=== PATIENT | female | born 1965 | race Caucasian/White ===

== ENCOUNTER 2024-05-31 01:47 | Inpatient (IN) | payer OTHER, SELFPAY ==
[2024-05-30 21:31] VITALS: BP 132/72
[2024-05-30 21:44] VITALS: BP 108/53; BMI 27.0
[2024-05-30 22:00] VITALS: BP 96/54
[2024-05-30 22:01] LABS: % Basophils 0.5 % (0-2); % Eosinophils 5.8 % (0-6); % Immature Granulocytes 0.3 % (0-0.5); % Lymphocytes 43.9 % (20.5-51.1); % Monocytes 7.5 % (1.7-9.3); Absolute Eosinophils 0.4 10^3/uL (0-0.7); Absolute Lymphocytes 2.6 10^3/uL (1.2-3.4); Absolute Monocytes 0.5 10^3/uL (0.1-0.6); Absolute Neutrophils 2.5 10^3/uL (1.4-6.5); Hematocrit 36.7 % (37.0-47.0); Hemoglobin 12.3 g/dL (12.0-16.0); Mean Corp Hgb Conc. 33.5 g/dL (33.0-37.0); Mean Corpuscular Hgb 32.2 pg (27.0-31.0); Mean Corpuscular Volume 96.1 fL (81.0-99.0); Mean Platelet Volume 9.3 fL (7.4-10.4); Nucleated Red Blood Cells % 0 %; Platelet Count 231 10^3/uL (130-400); Red Blood Cell Count 3.82 10^6/uL (4.20-5.40); Red Cell Dist. Width 13.8 % (11.5-14.5)
[2024-05-30 22:20] LABS: ALT (SGPT) 22 U/L (0-35); AST (SGOT) 29 U/L (14-36); Albumin 4.8 g/dl (3.5-5.0); Alkaline Phosphatase 48 U/L (38-126); Blood Urea Nitrogen 21 mg/dl (7-17); Calcium 9.6 mg/dl (8.4-10.2); Carbon Dioxide 27 mmol/L (22-30); Chloride 102 mmol/L (98-107); Estimated Creatinine Clearance 60 ml/min; Glucose 84 mg/dl (70-99); Potassium 3.9 mmol/L (3.5-5.1); Sodium 138 mmol/L (135-145); Total Bilirubin 0.5 mg/dl (0.2-1.3); eGFR > 60.00
[2024-05-30 22:24] LABS: NT-proBNP 24.3 pg/ml; Troponin I < 0.012 ng/ml
--- NOTE | 2024-05-30 22:31 | EDRN ---
Updated the patient on blood work
[2024-05-30 23:00] VITALS: BP 94/58
--- NOTE | 2024-05-30 23:14 | ED.GENMED ---
History of Present Illness
<Elisabeth Smith NP - Last Filed: 06/02/24 02:33>
General
Chief Complaint: Chest Pain
Source: patient
Exam Limitations: none
Time Seen by Provider: 05/30/24 21:50
Nursing documentation reviewed up to this point in time: agreed with
History of Present Illness
History of Present Illness:
Patient to ED with complaint of chest pain and tightness. Symptoms started just [employer]. Reports pain into back at time. Pain and tightness came in waves. No aggravating or alleviating factors. Pain and tightness resolved prior to evaluation. No
prior history of same. No associated n/v/diaphoresis. No SOB.
Past History
<Elisabeth Smith FORENSIC NURSE - Last Filed: 06/02/24 02:33>
Past History
ED Past Medical History: Other (Chronic back pain)
ED Past Surgical History: Other (Breast reduction surgery)
Social History
Tobacco: Non-smoker
Alcohol: None
Drug: None
Personal:
Living: with family
Review of Systems
<Elisabeth Smith NP - Last Filed: 06/02/24 02:33>
Review of Systems
Allergies reviewed?: Yes
All Other Systems: ROS reviewed and negative except as documented in HPI and ROS
Constitutional: Reports no symptoms
EENT: Reports no symptoms
Respiratory: Reports no symptoms
Cardiac: Reports chest pain
ABD/GI: Reports no symptoms
: Reports no symptoms
Musculoskeletal: Reports no symptoms
Skin: Reports no symptoms
Neurological: Reports no symptoms
Psychiatric: Reports no symptoms
Phy Exam
<Elisabeth Smith FORENSIC NURSE - Last Filed: 06/02/24 02:33>
General Physical Exam
General Presentation: well appearing and no apparent distress
General age: appears stated age
General Skin: warm and dry
General Habitus: normal
General Mental: alert
Cardiovascular Exam
Cardiovascular Exam: regular rate/rhythm and no edema
Pulmonary Exam
Pulmonary Exam: lungs clear and no respiratory distress
Gastrointestinal Exam
Gastrointestinal Exam: non tender and soft
Musculoskeletal Exam
Musculoskeletal Exam: full ROM and neuro vasc intact
Skin Exam
Skin Exam: normal color, warm/dry and no rash
Psychiatric Exam
Psychiatric Exam: normal mood/affect
Scores
<Elisabeth Smith NP - Last Filed: 06/02/24 02:33>
Heart Score for Chest Pain Patients
STEMI patient?: No
History: Moderately Suspicious
ECG: Normal
Age: >45 - <65 years
Risk Factors: 1 or 2 Risk Factors
Troponin: >1 - <3 x Normal Limit
Heart Score for Chest Pain Patients: 4
Heart Score Risk: 20.3% MACE over next 6 weeks
Course
<Elisabeth Smith NP - Last Filed: 06/02/24 02:33>
Orders/Labs/Results
Orders:
Orders
05/30/24 21:22
Electrocardiogram (*1) Urgent
Reason for Study: Other
Other Reason for Exam: Respiratory Distress
Cardiac Monitoring- Treatment ONCE
EKG- Treatment ONCE
IV Insert/Care/Rem.- Treatment PRN
CR Chest - 2 Views Urgent
Comment:
Reason For Exam: respiratory distress
O2 Therapy [RESP] Urgent
Titrate/Wean O2 to maintain O2 sat greater than (%): 93
Special Instructions: TO MAINTAIN CONTINUOUS O2 SATS >/= 93%
Pulse Ox/cont/shift [RESP] Urgent
Quantity: 1
Special Instructions: continuous pulse ox
05/30/24 21:39
Complete Blood Count/With Diff Urgent
Comprehensive Metabolic Panel Urgent
NT-proBNP Urgent
Troponin I Urgent
05/31/24 00:16
Troponin I Urgent
05/31/24 01:06
Heparin 4,700 units IV NOW STA
Nursing to Place Non Medication Order As Directed
Physician Order: PTT 6 hours after initial start of Heparin infusion
Above order entered?: Yes
05/31/24 01:07
Electrocardiogram (*1) Urgent
Reason for Study: Chest Pain
EKG- Treatment ONCE
05/31/24 01:08
PTT Urgent
Comment: Obtain baseline before beginning heparin infusion if not already collected
05/31/24 01:30
Heparin 50888 Units/250 ml 25,000 units in 250 ml .ROUTE .STK-MED
05/31/24 01:33
Aspirin Chewable [Low Strength Aspirin] 324 mg PO NOW STA
Nitroglycerin Sublingual [Nitrostat (Sublingual)] 0.4 mg SL NOW STA
05/31/24 01:36
Admit/Transfer Patient As Directed
Co-Sign Provider:
Level of Care: Inpatient admission
Assign to:: IVU
Physician / Group: Yasmany
Diagnosis: ACS
Reason for Hospitalization: ACS
Expected length of stay greater than two midnights?: Yes
ELOS- Estimated Length of Stay in days: 3
I certify the patient meets the requirements for IP care: Yes
PRN Pain Medication Management As Directed
May give lesser potent ordered pain med per pt: Yes
preference::
Protocol:: Medication orders for pain may be administered in a
manner that supports deferring to patient preference
when the pt is:
- Requesting an ordered lesser potent pain medication.
Least to most potent pain medications are defined
as: acetaminophen < NSAID < tramadol < opioids
(morphine, oxycodone, hydromorphone).
- Requesting a lesser dose of the same medication IF
ORDERED.
- Requesting a less intrusive route of administration
if both routes are prescribed by the provider (PO <
IV).
05/31/24 01:38
Code Status As Directed
Resuscitation Status: Full Code
Aspirin Chewable [Low Strength Aspirin] 324 mg .ROUTE .STK-MED ONE
Nitroglycerin Sublingual [Nitrostat (Sublingual)] 0.4 mg .ROUTE .STK-MED ONE
05/31/24 01:[address] [CT Chest PE Study] Urgent
Comment:
Reason For Exam: Chest pain / back pain
05/31/24 01:45
Heparin 51058 Units/250 ml 25,000 units in 250 ml IV PER PROTOCOL
Weight to be used for heparin protocol in kilograms (kg):: 67
Protocol:: Cardiac Tx/Acute Coronary
PTT Goal Range to be used:: PTT 73 to 111 seconds
Order type:: Initial
INITIAL Infusion Dose (UNITS/KG/hr) & then follow protocol:: 15 units/kg/hr
Infusion Dose in UNITS/hr & then follow protocol (UNITS/hr):: 1,000
INFUSION RATE in mL/hr & then follow protocol (mL/hr):: 10
PTT less than or equal to 64 seconds:: Increase rate by 200 units/hr (+ 2 mL/hr)
PTT 64.1 to 72.9 seconds:: Increase rate by 100 units/hr (+ 1 mL/hr)
PTT 73 to 111 seconds:: Target Range. No change in rate.
PTT 111.1 to 130.9 seconds:: Decrease rate by 100 units/hr (- 1 mL/hr)
PTT 131 to 199.9 seconds:: HOLD for 1 hr. Then decrease rate by 200 units/hr (- 2 mL/hr)
PTT greater than or equal to 200 seconds:: HOLD for 2 hrs & Notify Provider. Then decrease by 200 units/hr (-
2 mL/hr)
Lab follow-up:: Each change, PTT q6h until 2 consecutive are therapeutic. Then PTT
daily.
05/31/24 02:52
Acetaminophen [Tylenol] 650 mg PO Q4HPRN PRN
Lactated Ringers [Lr] 1,000 ml IV 100 mls/hr
Morphine Sulfate 2 mg IV Q4HPRN PRN
Nitroglycerin Sublingual [Nitrostat (Sublingual)] 0.4 mg SL [id number] PRN
05/31/24 02:52
CARDIOLOGY CONSULT Routine
Consulting Provider: Ramon Daniel
Was physician already notified: No
Reason for consult: ACS
Consult Notification Routine
Specialty to Notify: Cardiology
Date consulting provider notified: 05/31/24
Time consulting provider notified: 07:15
Notified:: Provider
Comment: [place] text read
Heparin Protocol- PTT Orders As Directed
PTT per Heparin protocol: -Obtain CBC and baseline PTT - if not already collected.
-Obtain PTT 6 hours from start of infusion. Then, every 6 hours until 2 consecutive
PTT's are therapeutic. Then, PTT Daily.
-With each rate change, obtain PTT every 6 hours until 2 consecutive PTT's are
therapeutic. Then, PTT Daily.
Activity As Directed
Activity Level: Bedrest
EKG with chest pain [ECG as needed] As Directed
ECG as needed for:: Chest Pain
I/O [Intake/ Output] As Directed
Frequency: Per unit guidelines
Notify MD As Directed
Notify physician if: PTT is greater than or equal to 200.
Vital Signs As Directed
Frequency: Per unit guidelines
Oxygen Therapy [O2 Therapy] [RESP] Routine
Titrate/Wean O2 to maintain O2 sat greater than (%): 94
05/31/24 Breakfast
NPO
Allow oral meds: Yes
Allow clear liquids: Sips of Clears
05/31/24 06:21
Glycohemoglobin (HgbA1c) Routine
05/31/24 08:00
Aspirin Chewable [Low Strength Aspirin] 81 mg PO DAILY
05/31/24 18:00
Atorvastatin [Lipitor] 40 mg PO QPM
Abnormal Lab Results
05/30/24 05/31/24
21:39 00:16
RBC 3.82 L 10^6/uL
(4.20-5.40)
Hct 36.7 L %
(37.0-47.0)
MCH 32.2 H pg
(27.0-31.0)
Neutrophils % 42.0 L %
(42.2-75.2)
BUN 21 H mg/dl
(7-17)
Troponin I 0.172 H* D ng/ml
05/30/24 21:39
05/30/24 21:39
Vital Signs
Initial and Last Documented VS:
Initial Vital Signs
Temp Pulse Resp BP
98.3 F 78 18 132/72
05/30/24 21:31 05/30/24 21:31 05/30/24 21:31 05/30/24 21:31
Last Documented Vital Signs
Temp Pulse Resp BP Pulse Ox
99 F 54 16 115/68 98
06/01/24 20:06 06/01/24 20:06 06/01/24 20:06 06/01/24 20:06 06/01/24 20:06
<Mark Lugo, DO - Last Filed: 05/31/24 01:19>
Orders/Labs/Results
Orders:
Orders
05/30/24 21:22
Electrocardiogram (*1) Urgent
Reason for Study: Other
Other Reason for Exam: Respiratory Distress
Cardiac Monitoring- Treatment ONCE
EKG- Treatment ONCE
IV Insert/Care/Rem.- Treatment PRN
CR Chest - 2 Views Urgent
Comment:
Reason For Exam: respiratory distress
O2 Therapy [RESP] Urgent
Titrate/Wean O2 to maintain O2 sat greater than (%): 93
Special Instructions: TO MAINTAIN CONTINUOUS O2 SATS >/= 93%
Pulse Ox/cont/shift [RESP] Urgent
Quantity: 1
Special Instructions: continuous pulse ox
05/30/24 21:39
Complete Blood Count/With Diff Urgent
Comprehensive Metabolic Panel Urgent
NT-proBNP Urgent
Troponin I Urgent
05/31/24 00:16
Troponin I Urgent
05/31/24 01:06
Heparin 4,700 units IV NOW STA
Nursing to Place Non Medication Order As Directed
Physician Order: PTT 6 hours after initial start of Heparin infusion
Above order entered?: Yes
05/31/24 01:07
Electrocardiogram (*1) Urgent
Reason for Study: Chest Pain
EKG- Treatment ONCE
05/31/24 01:08
PTT Urgent
Comment: Obtain baseline before beginning heparin infusion if not already collected
05/31/24 01:30
Heparin 06985 Units/250 ml 25,000 units in 250 ml .ROUTE .STK-MED
05/31/24 01:33
Aspirin Chewable [Low Strength Aspirin] 324 mg PO NOW STA
Nitroglycerin Sublingual [Nitrostat (Sublingual)] 0.4 mg SL NOW STA
05/31/24 01:36
Admit/Transfer Patient As Directed
Co-Sign Provider:
Level of Care: Inpatient admission
Assign to:: IVU
Physician / Group: Yasmany
Diagnosis: ACS
Reason for Hospitalization: ACS
Expected length of stay greater than two midnights?: Yes
ELOS- Estimated Length of Stay in days: 3
I certify the patient meets the requirements for IP care: Yes
PRN Pain Medication Management As Directed
May give lesser potent ordered pain med per pt: Yes
preference::
Protocol:: Medication orders for pain may be administered in a
manner that supports deferring to patient preference
when the pt is:
- Requesting an ordered lesser potent pain medication.
Least to most potent pain medications are defined
as: acetaminophen < NSAID < tramadol < opioids
(morphine, oxycodone, hydromorphone).
- Requesting a lesser dose of the same medication IF
ORDERED.
- Requesting a less intrusive route of administration
if both routes are prescribed by the provider (PO <
IV).
05/31/24 01:38
Code Status As Directed
Resuscitation Status: Full Code
Aspirin Chewable [Low Strength Aspirin] 324 mg .ROUTE .STK-MED ONE
Nitroglycerin Sublingual [Nitrostat (Sublingual)] 0.4 mg .ROUTE .STK-MED ONE
05/31/24 01:[address] [CT Chest PE Study] Urgent
Comment:
Reason For Exam: Chest pain / back pain
05/31/24 01:45
Heparin 10809 Units/250 ml 25,000 units in 250 ml IV PER PROTOCOL
Weight to be used for heparin protocol in kilograms (kg):: 67
Protocol:: Cardiac Tx/Acute Coronary
PTT Goal Range to be used:: PTT 73 to 111 seconds
Order type:: Initial
INITIAL Infusion Dose (UNITS/KG/hr) & then follow protocol:: 15 units/kg/hr
Infusion Dose in UNITS/hr & then follow protocol (UNITS/hr):: 1,000
INFUSION RATE in mL/hr & then follow protocol (mL/hr):: 10
PTT less than or equal to 64 seconds:: Increase rate by 200 units/hr (+ 2 mL/hr)
PTT 64.1 to 72.9 seconds:: Increase rate by 100 units/hr (+ 1 mL/hr)
PTT 73 to 111 seconds:: Target Range. No change in rate.
PTT 111.1 to 130.9 seconds:: Decrease rate by 100 units/hr (- 1 mL/hr)
PTT 131 to 199.9 seconds:: HOLD for 1 hr. Then decrease rate by 200 units/hr (- 2 mL/hr)
PTT greater than or equal to 200 seconds:: HOLD for 2 hrs & Notify Provider. Then decrease by 200 units/hr (-
2 mL/hr)
Lab follow-up:: Each change, PTT q6h until 2 consecutive are therapeutic. Then PTT
daily.
05/31/24 02:52
Acetaminophen [Tylenol] 650 mg PO Q4HPRN PRN
Lactated Ringers [Lr] 1,000 ml IV 100 mls/hr
Morphine Sulfate 2 mg IV Q4HPRN PRN
Nitroglycerin Sublingual [Nitrostat (Sublingual)] 0.4 mg SL [id number] PRN
05/31/24 02:52
CARDIOLOGY CONSULT Routine
Consulting Provider: Ramon Daniel
Was physician already notified: No
Reason for consult: ACS
Consult Notification Routine
Specialty to Notify: Cardiology
Date consulting provider notified: 05/31/24
Time consulting provider notified: 07:15
Notified:: Provider
Comment: [place] text read
Heparin Protocol- PTT Orders As Directed
PTT per Heparin protocol: -Obtain CBC and baseline PTT - if not already collected.
-Obtain PTT 6 hours from start of infusion. Then, every 6 hours until 2 consecutive
PTT's are therapeutic. Then, PTT Daily.
-With each rate change, obtain PTT every 6 hours until 2 consecutive PTT's are
therapeutic. Then, PTT Daily.
Activity As Directed
Activity Level: Bedrest
EKG with chest pain [ECG as needed] As Directed
ECG as needed for:: Chest Pain
I/O [Intake/ Output] As Directed
Frequency: Per unit guidelines
Notify MD As Directed
Notify physician if: PTT is greater than or equal to 200.
Vital Signs As Directed
Frequency: Per unit guidelines
Oxygen Therapy [O2 Therapy] [RESP] Routine
Titrate/Wean O2 to maintain O2 sat greater than (%): 94
05/31/24 Breakfast
NPO
Allow oral meds: Yes
Allow clear liquids: Sips of Clears
05/31/24 06:21
Glycohemoglobin (HgbA1c) Routine
05/31/24 08:00
Aspirin Chewable [Low Strength Aspirin] 81 mg PO DAILY
05/31/24 18:00
Atorvastatin [Lipitor] 40 mg PO QPM
Abnormal Lab Results
05/30/24 05/31/24
21:39 00:16
RBC 3.82 L 10^6/uL
(4.20-5.40)
Hct 36.7 L %
(37.0-47.0)
MCH 32.2 H pg
(27.0-31.0)
Neutrophils % 42.0 L %
(42.2-75.2)
BUN 21 H mg/dl
(7-17)
Troponin I 0.172 H* D ng/ml
05/30/24 21:39
05/30/24 21:39
Vital Signs
Initial and Last Documented VS:
Initial Vital Signs
Temp Pulse Resp BP
98.3 F 78 18 132/72
05/30/24 21:31 05/30/24 21:31 05/30/24 21:31 05/30/24 21:31
Last Documented Vital Signs
Temp Pulse Resp BP Pulse Ox
99 F 54 16 115/68 98
06/01/24 20:06 06/01/24 20:06 06/01/24 20:06 06/01/24 20:06 06/01/24 20:06
<Elisabeth Smith NP - Last Filed: 06/02/24 02:33>
*Critical Care Note
Total Time (30-74mins, 75-104mins- exclusive of procedures): Not Applicable
<Elisabeth Smith NP - Last Filed: 06/02/24 02:33>
Update Note
Update Note:
Patient remains asymptomatic. VSS. Labs, CXR reviewed with her. No concerning findings. EKG NSR, troponin neg. WIll repeat troponin at 3hrs.
<Mark Lugo, DO - Last Filed: 05/31/24 01:19>
Update Note
Update Note:
Patient remains asymptomatic. VSS. Labs, CXR reviewed with her. No concerning findings. EKG NSR, troponin neg. WIll repeat troponin at 3hrs.
Repeat troponin is markedly elevated. Patient is still asymptomatic. Repeat EKG is largely unchanged. Heparin started patient to be admitted for continued observation and cardiology intervention if needed.
ED Attending Note
<Elisabeth Smith NP - Last Filed: 06/02/24 02:33>
-
Portions of this chart may have been created with voice recognition software.� Occasional wrong word or��sound alike� substitutions may have occurred due to the inherent limitations of voice recognition software.
Discharge Plan
Departure
Patient Disposition: Admit
Date of Disposition: 05/31/24
Time of Disposition: 01:18
Admit to: IMU
Presentation/result/management discussed w/ accepting MD/DO: Hospitalist
Patient with high blood pressure during this ER visit?: No
Condition: Good
Covid-19: Not Applicable
Discharge Problem:
Chest pain
Interventions
Interventions:
*Risk Screen - Suicide Last Done: 05/30/24 21:31
*General Assessment Last Done: 05/30/24 21:31
*Neglect/Abuse Screening Last Done: 05/30/24 21:31
ED- Fall Risk Assessment Last Done: 05/30/24 21:44
*ED COVID-19 Vaccine History Last Done: 05/31/24 03:10
*Nursing Disposition Last Done: 05/31/24 03:14
ED- Cardiac Assessment Last Done: 05/30/24 21:44
Discharge Date and Time
Discharge Date/Time: 05/31/24 03:15
[2024-05-31] VITALS (14 sets, daily range): BP systolic 66–125; BP diastolic 41–72; BMI 26.6
[2024-05-31 00:54] LABS: Troponin I 0.172 ng/ml
--- NOTE | 2024-05-31 01:19 | EDRN ---
Patient updated on recent labs, Dr. Lugo in to speak with patient about plan and Dr. Jade in to admit patient, patient complained to me about legs feeling tingly, took blood pressure in both arms, right arm was 125/61, left arm was 109/71,
Parish aware.
[2024-05-31 01:28] LABS: APTT 28.2 Sec (23.4-35.0)
[2024-05-31] MEDS: LOW STRENGTH ASPIRIN 324 MG PO (01:41)
--- NOTE | 2024-05-31 01:41 | HPS.HSE ---
Family Physician
-
Family Physician: NOT KNOW UNKNOWN - PT DOES
Chief Complaint
-
Chest Pain
History of Present Illness
Patient is a 59y F with PMH significant for dyslipidemia who presents to ED complaining of chest pain. Patient states that she first noted some cramping in the R calf area. This was followed by substernal chest heaviness or pressure. Patient
states that the discomfort was quite severe and radiated straight through to the back. She had associated headache. She denies any SOB, diaphoresis or nausea. She then developed pins and needles sensation in both lower legs. Patient states that
these symptoms waxed and waned throughout the evening. She ultimately decided to present to the ED for further evaluation. En route to the hospital, her chest discomfort became most severe. By the time she arrived here, the symptoms were again
improving.
At the time of my examination, patient complains of a mild discomfort in the chest. She has had no more severe episodes since arrival.
Patient denies any prior history of similar symptoms. No personal history of KS, stroke, etc.
Patient has been seen by Cardiology at [facility]. She states that she had a calcium score done which was 101.
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
Patient initially developed symptoms of dysuria / suspected UTI. This was about 3 weeks ago. She was started on Bactrim.
1-2 days later she developed fever and shaking chills.
She then developed petechial rash of both lower legs.
She was treated with a prednisone taper and her symptoms fully resolved.
Medical History
Past Medical History
Past Medical History: Reports Other
Additional Past Medical History:
Dyslipidemia
Melanoma
Past Surgical History: Reports Other
Additional Past Surgical History:
Melanoma Excision
Bilateral Breast Reduction
Blepharoplasty
Social History
Tobacco: Non-smoker
Alcohol: Daily (1-2 / day)
Drug: None
Personal:
Living: With Family
Family History
Family History: Hypertension and Other (Multiple female family members with CVA )
Allergies / Home Medications
Allergies reflects when Allergies were last updated in [facility].
Home Medications with original date entered in [facility]
Allergy/Medication List:
Allergies
Allergy/AdvReac Type Severity Reaction Status Date / Time
amoxicillin Allergy Rash Verified 03/22/18 09:31
Penicillins Allergy Rash Verified 03/22/18 09:31
sulfamethoxazole Allergy Rash Verified 05/31/24 01:50
[From Bactrim]
trimethoprim [From Bactrim] Allergy Rash Verified 05/31/24 01:50
Home Medications
ezetimibe 10 mg tablet 10 mg PO DAILY 05/31/24
pravastatin 20 mg tablet 20 mg PO DAILY 05/31/24
Review of Systems
-
History Source: Patient
A 12 point ROS was completed and negative except as noted: Yes
Constitutional: Denies Fever, Fatigue or Chills
EENT: Denies Sore Throat
Respiratory: Denies Cough or Trouble Breathing
Cardiac: Reports Chest Pain; Denies Diaphoresis, Palpitations or Syncope
Abdomen/GI: Denies Abdominal Pain, Nausea, Vomiting or Diarrhea
: Denies Dysuria or Frequency
Musculoskeletal: Denies Joint Pain or Edema
Neurological: Reports Headache and Numbness; Denies Dizzy
Psych: Denies Depression or Anxiety
Physical Exam
Vital Signs
Vital Signs
Temp Pulse Resp BP Pulse Ox
98.3 F 69 17 109/71 98
05/30/24 21:31 05/31/24 01:15 05/31/24 01:15 05/31/24 01:15 05/31/24 01:15
Physical Exam
General: Other (Pale-appearing 59y F in no acute distress.)
HEENT: Moist mucous membranes and PERRLA
Respiratory: Clear; No Wheezes, Rales or Rhonchi
Cardiac: S1/S2 and Regular Rhythm; No Murmur
GI: Soft, Non Tender, Non Distended and Normal Bowel Sounds
Musculoskeletal: No Clubbing, No Cyanosis and No Edema
Neuro: AO x 3
Laboratory Results
-
05/30/24 21:39
05/30/24 21:39
Laboratory Results
APTT 28.2 Sec (23.4-35.0) 05/31/24 01:08
Total Bilirubin 0.5 mg/dl (0.2-1.3) 05/30/24 21:39
AST 29 U/L (14-36) 05/30/24 21:39
ALT 22 U/L (0-35) 05/30/24 21:39
Alkaline Phosphatase 48 U/L (38-126) 05/30/24 21:39
Troponin I 0.172 ng/ml H* D 05/31/24 00:16
Impression/Plan
-
A/P: Patient is a 59y F with PMH significant for dyslipidemia who presents to ED complaining of chest pain.
Chest Pain / ACS
- Admit to IVU for further evaluation and treatment.
- EKG without evidence of acute ischemia.
- Initial troponin was undetectable but second set was elevated at 0.172.
- ASA now. IV heparin. NTG SL PRN chest discomfort (has some mild residual discomfort now).
- Follow for changes in symptoms.
- Trend troponin to peak.
- Cardiology evaluation in the AM for additional recommendations.
- Given radiation of pain to the back, preceding symptoms of R calf cramping and recent episode of vasculitis - would check CTA of the chest to rule out other potential / contributing causes.
Dyslipidemia
- Change pravastatin to atorvastatin.
DVT Prophylaxis: On IV Heparin
Code Status: Full
[2024-05-31] MEDS: NITROSTAT (SUBLINGUAL) 0.4 MG SL (01:43)
[2024-05-31] MEDS: HEPARIN 4700 UNITS IV (01:43)
[2024-05-31] MEDS: HEPARIN 25000 UNITS/250 ML IV (01:45)
--- NOTE | 2024-05-31 01:50 | EDRN ---
Patient's blood pressure dropped after receiving the nitro and became nauseated, placed patient in Trendelenburg position and informed Dr. Jade, fluids ordered and hung. Patients nausea subsides and blood pressure coming up.
[2024-05-31] MEDS: NSS 1000 IV (02:00)
[2024-05-31] MEDS: LR 1000 IV ×3 (03:34→22:55)
--- NOTE | 2024-05-31 05:41 | PTCARENOTE ---
Rec'd pt. into room 2244 AAOx3, VSS, pt. able to ambulate with steady gait, no dizziness. NSR on the monitor . Pt. denied any acute chest pain, states she just has the 'sense that something happened earlier in my chest' which she could not call
pain and was unable to rate in intensity. Heparin gtt infusing at 1000 units/hr, LR started at 100 ml/he (of note, pt.'s BP 112/69 following hypotensive episode in ED). Pt. NPO pending cards eval today; plan of care discussed with patient,
understanding verbalized. Pt. currently sleeping.
[2024-05-31 07:16] LABS: APTT > 200 Sec (23.4-35.0)
[2024-05-31 08:25] LABS: Hematocrit 31.8 % (37.0-47.0); Hemoglobin 10.9 g/dL (12.0-16.0); Mean Corp Hgb Conc. 34.3 g/dL (33.0-37.0); Mean Corpuscular Hgb 32.4 pg (27.0-31.0); Mean Corpuscular Volume 94.6 fL (81.0-99.0); Mean Platelet Volume 9.4 fL (7.4-10.4); Platelet Count 209 10^3/uL (130-400); Red Blood Cell Count 3.36 10^6/uL (4.20-5.40); Red Cell Dist. Width 13.8 % (11.5-14.5); White Blood Cell Count 4.5 10^3/uL (4.8-10.8)
[2024-05-31] MEDS: TOPROL XL 12.5 MG PO (08:50)
[2024-05-31] MEDS: LOW STRENGTH ASPIRIN 81 MG PO (08:50)
[2024-05-31 09:33] LABS: Blood Urea Nitrogen 16 mg/dl (7-17); Calcium 8.6 mg/dl (8.4-10.2); Carbon Dioxide 27 mmol/L (22-30); Chloride 109 mmol/L (98-107); Estimated Creatinine Clearance 79 ml/min; Glucose 101 mg/dl (70-99); HDL Cholesterol 73 mg/dl; LDL Cholesterol, Calculated 58 mg/dl; Potassium 3.8 mmol/L (3.5-5.1); Sodium 139 mmol/L (135-145); Total Cholesterol 141 mg/dl (50-199); Triglyceride 51 mg/dl (10-149); Very Low Density Lipoprotein 10 mg/dl (0-30); eGFR > 60.00
--- NOTE | 2024-05-31 10:03 | W.PN.HOSP.TC ---
Today's Communication/Plan
-
Cath tomorrow. NPO after midnight.
Assessment / Plan
Assessment / Plan
Historical summary:
59y F with PMH significant for dyslipidemia who presented to ED complaining of chest pain. Her troponin was elevated and she was admitted for a NSTEMI.
Impression/Plan
1. Chest Pain / ACS
- EKG without evidence of acute ischemia.
- Initial troponin was undetectable but second set was elevated at 0.172, third was 0.020
- ASA given.
- IV heparin.
- NTG SL PRN chest discomfort (pain free now).
- Cardiology consulted
Nursing reported to me that plan in cath tomorrow am
NPO after midnight
2. CTA of the chest to rule out other potential / contributing causes such as PE
CT negative for PE
3. Dyslipidemia, chronic
- Changed pravastatin to atorvastatin.
DVT Prophylaxis: On IV Heparin
Code Status: Full
Anticipated Discharge: > 48 hours
Subjective/Interval History
-
Date of Service: May 31, 2024
Feels better this am. No chest pain. Troponin appears to have peaked. 0.172 --> 0.020
Objective Data
-
Labs:
Laboratory Results
05/30/24 05/31/24 05/31/24
21:39 01:08 06:21
WBC
Hgb
Hct
Plt Count
APTT 28.2 > 200 H*
Sodium 138 Cancelled
Potassium 3.9 Cancelled
Chloride 102 Cancelled
Carbon Dioxide 27 Cancelled
BUN 21 H Cancelled
Creatinine 0.9 Cancelled
Glucose 84 Cancelled
Calcium 9.6 Cancelled
Total Bilirubin 0.5
AST 29
ALT 22
Alkaline Phosphatase 48
05/31/24
08:15
WBC 4.5 L
Hgb 10.9 L
Hct 31.8 L
Plt Count 209
APTT
Sodium 139
Potassium 3.8
Chloride 109 H
Carbon Dioxide 27
BUN 16
Creatinine 0.7
Glucose 101 H
Calcium 8.6
Total Bilirubin
AST
ALT
Alkaline Phosphatase
Vital Signs:
Vital Signs
Temp Pulse Resp BP Pulse Ox
98.6 F 60 16 116/71 96
05/31/24 08:47 05/31/24 08:50 05/31/24 08:47 05/31/24 08:50 05/31/24 08:47
Review of Systems
-
History Source: Patient
All other systems: Reviewed and negative
Physical Exam
-
General: Well Developed, Well Nourished, No Apparent Distress and Comfortable
HEENT: Normocephalic, Atraumatic, Moist Mucous Membranes, Nose Appears Normal and Ears Appear Normal
Respiratory: Clear to Auscultation
Cardiac: Regular Rhythm and S1/S2
GI: Soft, Nontender and Nondistended
Musculoskeletal: No Clubbing, No Cyanosis and No Edema
Skin: Warm and Dry
Neuro: Awake, Alert, Oriented and AO x 3
Psych: Calm
Data Reviewed
-
Labs: Labs Reviewed by me
[2024-05-31 10:08] LABS: Glycohemoglobin (HgbA1c) 5.4 % (4.0-5.6)
[2024-05-31] MEDS: TYLENOL 650 MG PO ×2 (10:30→20:04)
--- NOTE | 2024-05-31 12:57 | CON.CAR ---
Consultation
Consultation Request
Date/Time Consultation Requested: 05/31/24
Date/Time Consultation Performed: 05/31/24
Requesting Provider: Yasmany
Performing Provider: María
Reason for Consultation: NSTEMI
Medical History
-
Chief Complaint: chest pain
History of Present Illness:
59-year-old woman past medical history of hyperlipidemia and moderately elevated coronary calcium score presenting for evaluation of chest discomfort
Patient reports that yesterday she developed calf cramping/pain in the right lower extremity. Approximately 10 to 15 minutes later she developed chest discomfort. She describes this as substernal chest pressure which radiated to the back with
associated dyspnea. Her drove her to [place] emergency department had an chest discomfort became more severe and root. Tells me she received sublingual nitro in the emergency department and that she became significantly hypotensive.
Initial troponin was undetectable and then up to 0.172 and back down to 0.02.
Underwent CTA of the chest which was unremarkable, no evidence of dissection or PE.
She was admitted to the IVU on heparin drip. This morning at the time my evaluation she was resting comfortably. She was not having any further chest discomfort as of this morning. But does describe all could be pleuritic type chest pain, with a
deep breath tells me she would have some sharp/stabbing discomfort.
Past Medical History
Past Medical History: Hypercholesterolemia
Past Surgical History: Other (Melanoma Excision, Bilateral Breast Reduction, Blepharoplasty)
Social History
Tobacco: Former Smoker (remote)
Personal:
Living: With Family
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
Family History
Family History: Other (A-fib, hypertension and hyperlipidemia but no premature CAD)
Allergies / Home Medications
Allergy/AdvReac Type Severity Reaction Status Date / Time
amoxicillin Allergy Rash Verified 03/22/18 09:31
Penicillins Allergy Rash Verified 03/22/18 09:31
sulfamethoxazole Allergy Rash Verified 05/31/24 01:50
[From Bactrim]
trimethoprim [From Bactrim] Allergy Rash Verified 05/31/24 01:50
�Medication �Instructions �Recorded �Confirmed �Type
ezetimibe 10 mg tablet 10 mg PO DAILY 05/31/24 05/31/24 History
multivitamin 1 tab PO DAILY 05/31/24 05/31/24 History
pravastatin 20 mg tablet 40 mg PO DAILY 05/31/24 05/31/24 History
Review of Systems
-
History Source: Patient
All other systems: Negative unless noted
Physical Exam
Vital Signs
Temp Pulse Resp BP Pulse Ox
98.7 F 58 16 95/67 98
05/31/24 11:46 05/31/24 12:00 05/31/24 11:46 05/31/24 11:44 05/31/24 11:46
Lab Results
05/31/24 08:15
05/31/24 08:15
Troponin I Cancelled 05/31/24 14:52
Nzb-[id number] Pept 24.3 pg/ml 05/30/24 21:39
Physical Exam
General: Well Developed
HEENT: Normocephalic
Respiratory: Clear
Cardiac: S1/S2 and Regular Rhythm
Breast: Deferred by me
GI: Soft
Musculoskeletal: No Edema
Skin: Warm and Dry
Neuro: AO x 3
Psych: Calm
Impression / Plan
-
Crm Marketing Manager: Follows at [facility]
Assessment:
NSTEMI
Hyperlipidemia
Elevated coronary calcium score
Plan:
-Presenting with substernal chest pressure and found to have rise and fall in troponin consistent with NSTEMI
-ECGs reviewed -no obvious ischemic changes seen
-Maintaining sinus rhythm on telemetry
-Physical exam is unremarkable
-Continue medical management: aspirin, high intensity statin, beta-eileen and heparin drip x 48 hours
-If chest pain recurs would start low-dose nitro drip and uptitrate as needed
-N.p.o. at midnight for left heart catheterization tomorrow
-Check echo in a.m.
-Will request records from her primary field sales engineer
Data Reviewed
-
EKG: Tracing Personally Visualized and interpreted
Radiology: Image Personally Visualized and interpreted
CT Scan: Image Personally Visualized and interpreted
Labs: Labs Reviewed by me
Old Records: Requested
[2024-05-31 16:31] LABS: APTT 64.1 Sec (23.4-35.0)
[2024-05-31] MEDS: LIPITOR 40 MG PO (17:52)
--- NOTE | 2024-05-31 19:52 | PTCARENOTE ---
Pt denied any discomfort today, resting in bed. Heparin infusing, not at a therapeutic level yet. Pt given information about cardiac cath planned for 06/01. Telemetry shows sinus rhythm.
[2024-05-31] MEDS: BENADRYL 25 MG PO (20:19)
--- NOTE | 2024-05-31 20:47 | PTCARENOTE ---
Pt Rec'd at change of shift awake,alert sinus on telemetry. IV Heparin gtt infusing at 900 units/hr. Pt aware of npo status after mn for cath in am. Pt with c/o sinus pressure with h/a. House SOFTWARE ENGINEER notified Benadryl order obtained and pt given Tylenol.
[2024-05-31 23:29] LABS: APTT 128.1 Sec (23.4-35.0)
[2024-06-01] VITALS (14 sets, daily range): BP systolic 93–117; BP diastolic 49–74
--- NOTE | 2024-06-01 00:01 | PTCARENOTE ---
Pt resting well per pt following Benadryl for sinus congestion. Heparin gtt adjusted for PTT 128.1. heparin adjusted to run at 800 units /hr.
[2024-06-01 05:17] LABS: APTT 131.8 Sec (23.4-35.0)
[2024-06-01 06:26] LABS: Blood Urea Nitrogen 13 mg/dl (7-17); Calcium 8.8 mg/dl (8.4-10.2); Carbon Dioxide 29 mmol/L (22-30); Chloride 108 mmol/L (98-107); Estimated Creatinine Clearance 69 ml/min; Glucose 100 mg/dl (70-99); Sodium 140 mmol/L (135-145); eGFR > 60.00
[2024-06-01] MEDS: HEPARIN 25000 UNITS/250 ML IV (07:34)
[2024-06-01] MEDS: LR 1000 IV (07:35)
[2024-06-01] MEDS: TOPROL XL 12.5 MG PO (08:22)
[2024-06-01] MEDS: LOW STRENGTH ASPIRIN 81 MG PO (08:22)
--- NOTE | 2024-06-01 09:11 | W.PN.HOSP.TC ---
Today's Communication/Plan
-
Cardiac cath. Cardiology reeval
Assessment / Plan
Assessment / Plan
Physical exam:
General: Well Developed, Well Nourished and No Apparent Distress
HEENT: Normocephalic, Atraumatic and Moist Mucous Membranes
Respiratory: Clear to Auscultation; Negative Wheezes, Rales or Rhonchi
Cardiac: Regular Rhythm and S1/S2
GI: Soft, Nontender and Nondistended
Musculoskeletal: No Clubbing, No Cyanosis and No Edema
Neuro: Awake, Alert and Oriented
Psych: Calm
A/P:
Chest pain and elevated troponin, concerning for NSTEMI versus elevated troponin due to other etiologies:
Cardiac cath today
On ACS protocol
Cardiology following
Plan for echocardiogram as well
Hypotension:
[place] to be related to medications
On IV fluid
Monitor blood pressure
Hypertension:
On metoprolol succinate 12.5 mg p.o. day
Hyperlipidemia:
Continue atorvastatin 40 mg p.o. nightly and Zetia 10 mg p.o. daily
DVT prophylaxis:
On heparin
CODE STATUS:
Full code
Anticipated Discharge: Within 24 hours
Subjective/Interval History
-
Date of Service: June 01, 2024
Patient denies chest pain or shortness of breath.
Objective Data
-
Labs:
Laboratory Results
05/31/24 06/01/24 06/01/24
23:07 04:53 12:45
APTT 128.1 H 131.8 H Pending
Sodium 140
Potassium 4.0
Chloride 108 H
Carbon Dioxide 29
BUN 13
Creatinine 0.8
Glucose 100 H
Calcium 8.8
Vital Signs:
Vital Signs
Temp Pulse Resp BP Pulse Ox
97.9 F 50 16 94/68 97
06/01/24 06:50 06/01/24 01:00 06/01/24 06:50 05/31/24 22:58 06/01/24 06:50
--- NOTE | 2024-06-01 09:13 | PTCARENOTE ---
Report given, patient sent to the clinical laboratory scientist
--- NOTE | 2024-06-01 10:17 | ITS.CL.CATH ---
Reinforcing Steel Placer - Catheterization
Cardiac Catheterization
Procedure Report:
LEFT HEART CATHETERIZATION
Date of Procedure: June 01, 2024
Referring: Dr. Ramon Daniel
PROCEDURES:
1. Left heart catheterization with coronary and single-plane left ventriculography
INDICATION: Chest pain with elevated troponin
ACCESS: Right radial artery using ultrasound guidance and placement of a 6 [place] radial sheath
HEMODYNAMICS : (mmHg)
AO (s/d) : 109/62, 83
LV (s/d) : 108/11
LVEDP : 22
CORONARY FINDINGS
DOMINANCE: Right
LEFT MAIN: Normal
LEFT ANTERIOR DESCENDING: The LAD is a medium to large caliber vessel arising normally from the left main and running in the anterior interventricular groove. The LAD wraps completely around the apex supplying a portion of the inferior wall and
appears angiographically normal over its course. There is mild coronary calcification involving the proximal LAD but no significant luminal encroachment.
CIRCUMFLEX: The circumflex is a large-caliber nondominant vessel supplying a single large obtuse marginal branch that is widely patent over its course
RIGHT CORONARY ARTERY: The right coronary artery is a large-caliber dominant vessel that is widely patent over its course. The PDA is widely patent. The posterolateral branch is a moderate caliber vessel that is widely patent.
VENTRICULOGRAPHY: Left ventriculography was performed in an CORREA projection. The digital single-plane left ventricular ejection fraction is estimated at 55-60%. No regional wall motion abnormalities are noted
RADIATION SUMMARY: Fluoro Time (min): 2.9, Dose (mGy): 123, DAP (Gy.cm2) : 9.6
Closure Device: TR band
CONCLUSIONS
1. Nonobstructive coronary disease
2. Preserved left ventricular systolic function
RECOMMENDATIONS
1. Medical therapy and risk modification
2. She should follow-up with her regular it integration architect.
Copy to: Dr. Ramon Daniel
--- NOTE | 2024-06-01 10:28 | PTCARENOTE ---
Patient received from lab specialist, AO x3, denies pain. SB, right radial site CDI, call rankin in reach
--- NOTE | 2024-06-01 14:22 | PTCARENOTE ---
TR band removed, dry sterile dressing applied, denies chest pain, SB HR 46, BP 107/67.
--- NOTE | 2024-06-01 14:29 | CM ---
Chart reviewed. Patient is independent of ADLS, lives with her in a 3 STH, 3 LINUS, 0 DME. Plan is for the patient to return home. CM to follow
[2024-06-01] MEDS: LIPITOR 40 MG PO ×2 (18:40→18:43)
--- NOTE | 2024-06-01 18:43 | W.DCSUMMARY ---
Discharge Summary
Discharge Data
Date of Admission: 05/31/24
Date of Discharge: 06/01/24
-
Pending Results: No
Hospital Course
Patient 59 years old female with history of hyperlipidemia and elevated coronary calcium score came into the hospital with chest pain and elevated troponin. Cardiology consulted. She was started on heparin drip and ACS protocol. Cardiac cath
revealed nonobstructive CAD. Cardiology has cleared her for discharge and she can follow-up as outpatient with cardio. She also had an unremarkable transthoracic echocardiogram. No other events were noticed.
Discharge Plan
-
Patient Disposition: Home (Routine Discharge)
Discharge Diagnosis/Procedures: Cardiac catheterization. Elevated troponin.
Diet: Low Cholesterol
Activity: As tolerated
Driving Restrictions: No driving for 24 hours
Blood Work: Please PCP to order CBC, BMP within 1 week
Stand Alone Forms: DC Instructions- Cath/EP Lab, Return to Work
Referrals:
Primary care, provider [Other] (See less than 1 week)
[facility] [Provider Group] - in three to four weeks
Prescriptions:
New
aspirin 81 mg Tablet,Chewable
81 mg PO DAILY Qty: 30 0RF
metoprolol succinate 25 mg Tablet Extended Release 24 Hr
12.5 mg PO DAILY 30 Days Qty: 15 0RF
clopidogrel 75 mg tablet
75 mg PO DAILY Qty: 90 3RF
Continued
pravastatin 20 mg Tablet
40 mg PO DAILY
ezetimibe 10 mg Tablet
10 mg PO DAILY
multivitamin Tablet
1 tab PO DAILY
Discharge Orders:
Discharge Patient (As Directed); Ordered 06/01/24
Ordered By: Aniket Robertson
Care Plan Goals
Care Plan Goals:
Problem: Readiness for enhanced knowledge related to diagnosis and treatment plan
Goal: Understand your diagnosis and treatment plan needs, including medications if applicable.
Instructions: Know your diagnosis, underlying causes and treatment plan options, including medications if applicable. Consult with your health care team to learn about your diagnosis and treatment plan, including medications if applicable.
Discharge Date and Time
Discharge Date/Time: 06/01/24 20:45
Print Language: GEORGIAN
--- NOTE | 2024-06-01 21:24 | PTCARENOTE ---
Rec'd pt at change of shift. Pt AAO*3, VSS, and SR on TELE monitor. Pt denies any pain or discomfort. Order rec'd for d/c. D/c instructions given and pt verbalizes understanding. R radial cath site CDI. TELE monitor and IV removed. Pt left
room with spouse, education packet, electronics (phone and laptop), and personal belongings. Staff escorted pt out of building via wheelchair. Pt safely made it into car with spouse driving pt home.
== END 2024-06-01 20:45 | disposition home or self-care (01) | DRG 287 ==
LOC: IVU 01:47
PROVIDERS: Internal Medicine; Internal Medicine Interventional Cardiology; Nurse Practitioner; Student in an Organized Health Care Education/Training Program; ADMITTING PHYSICIAN Hospitalist; ATTENDING PHYSICIAN Hospitalist; CONSULT PHYSICIAN Internal Medicine Cardiovascular Disease; EMERGENCY PHYSICIAN Emergency Medicine
PROC: 4A023N7 Measurement of Cardiac Sampling and Pressure, Left Heart, Percutaneous Approach (ICD-10-PCS; 2024-06-01)
PROC: B215YZZ Fluoroscopy of Left Heart using Other Contrast (ICD-10-PCS; 2024-06-01)
PROC: B211YZZ Fluoroscopy of Multiple Coronary Arteries using Other Contrast (ICD-10-PCS; 2024-06-01)
DX: I25.10 Atherosclerotic heart disease of native coronary artery without angina pectoris (principal); I10 Essential (primary) hypertension; E78.00 Pure hypercholesterolemia, unspecified; G89.29 Other chronic pain; R79.89 Other specified abnormal findings of blood chemistry; Z88.0 Allergy status to penicillin; Z88.2 Allergy status to sulfonamides; Z88.1 Allergy status to other antibiotic agents; Z79.899 Other long term (current) drug therapy; Z85.820 Personal history of malignant melanoma of skin; Z87.891 Personal history of nicotine dependence
CPT/HCPCS: 71046; 71275; 80048; 80053; 80061; 83036; 83880; 84484; 85025; 85027; 85730; 93005; 93306; 93458; 94760; 96365; 99285; C1894; Q9967

== ENCOUNTER 2024-12-30 15:11 | Emergency (ER) | payer OTHER, SELFPAY ==
[2024-12-30 15:13] VITALS: BP 136/73
--- NOTE | 2024-12-30 15:30 | ED.GENMED ---
History of Present Illness
General
Chief Complaint: Cardiac Symptoms
Time Seen by Provider: 12/30/24 15:29
History of Present Illness
History of Present Illness:
59-year-old female history of hyperlipidemia presenting with posterior headache intermittently for the past day. Patient states it feels like a pulsating headache now today has been more frequent with associated left eye pain. Patient states that
it comes for a few seconds and then spontaneously resolves. Patient states that for the past few days has been having sharp nonpleuritic nonexertional nonradiating chest pain and feeling like she is unable to take full breath. Patient denies any
complaints currently. Patient states she was seen and admitted in May where she had a cardiac catheterization that showed no obstruction. Patient states this feels different than previous admission in May for chest pain. Patient denies
visual changes, numbness, weakness or tingling.
Past History
Past History
ED Past Medical History: Other (Chronic back pain)
ED Past Surgical History: Other (Breast reduction surgery)
Social History
Tobacco: Non-smoker
Alcohol: None
Drug: None
Personal:
Living: with family
Phy Exam
Physical Exam
Physical Exam:
General: Alert, no acute distress
Head: NCAT
Eyes: clear conjunctiva, PERRLA, EOMI
Neck: supple
Cardiac: regular rate and rhythm, no murmur
Lungs: clear to auscultation bilaterally. No wheezes, rales, or rhonchi. Speaking full unlabored sentences. No respiratory distress.
Abdomen: soft, nondistended nontender. No rebound or guarding.
MSK: no lower extremity edema bilaterally. No deformity
Skin: warm, dry
Neuro: Alert and oriented x3. Cranial nerves II through XII grossly intact no focal deficits. 5-5 strength bilateral upper lower extremities. Sensation intact throughout. Normal finger-nose. No pronator drift
Scores
Heart Score for Chest Pain Patients
STEMI patient?: No
History: Slightly or Non-Suspicious
ECG: Nonspecific Repolarization
Age: >45 - <65 years
Risk Factors: 1 or 2 Risk Factors
Troponin: </= Normal Limit
Heart Score for Chest Pain Patients: 3
Heart Score Risk: 2.5% MACE over next 6 weeks
Course
Orders/Labs/Results
Orders:
Orders
12/30/24 15:16
ECG [Electrocardiogram (*1)] Urgent
Reason for Study: Palpitations
Other Reason for Exam: chest discomfort
EKG- Treatment ONCE
12/30/24 15:42
CT Head W/o Iv Contrast Urgent
Comment:
Reason For Exam: intermittent posterior headache and left eye pain
CXR2 [CR Chest - 2 Views ] Urgent
Comment:
Reason For Exam: sob, chest pain
12/30/24 16:01
Complete Blood Count/With Diff Urgent
Comprehensive Metabolic Panel Urgent
Troponin I Urgent
12/30/24 17:45
EKG- Treatment ONCE
12/30/24 19:00
Electrocardiogram (*1) Urgent
Reason for Study: Chest Pain
12/30/24 19:04
Troponin I Urgent
Abnormal Lab Results
12/30/24
16:01
WBC 4.5 L 10^3/uL
(4.8-10.8)
RBC 3.37 L 10^6/uL
(4.20-5.40)
Hgb 11.1 L g/dL
(12.0-16.0)
Hct 32.6 L %
(37.0-47.0)
MCH 32.9 H pg
(27.0-31.0)
Monocytes % 10.2 H %
(1.7-9.3)
BUN 20 H mg/dl
(7-17)
12/30/24 16:01
09/10/25 16:01
Vital Signs
Initial and Last Documented VS:
Initial Vital Signs
Temp Pulse Resp BP Pulse Ox
97.5 F 54 16 136/73 99
12/30/24 15:13 12/30/24 15:13 12/30/24 15:13 12/30/24 15:13 12/30/24 15:13
Last Documented Vital Signs
Temp Pulse Resp BP Pulse Ox
97.5 F 46 13 114/61 98
12/30/24 15:13 12/30/24 17:15 12/30/24 17:15 12/30/24 17:00 12/30/24 17:15
MDM/Problems Addressed
Differential Diagnosis Includes:
Intracranial hemorrhage, tension headache, NSTEMI, GERD
MDM/Problems Addressed:
Results reviewed. Troponin negative x2. Repeat EKG unchanged. CXR shows no acute infiltrate or consolidation, no pneumothorax as read by me. CT head shows No acute intracranial abnormality as read by radiology. Labs reviewed, shows anemia with
hemoglobin 11.1 (baseline 10.9). Otherwise creatinine, LFTs within normal limits.
On reevaluation. Pt denies any symptoms at this time. Vitals stable. Discussed results with patient at bedside. Stable for discharge home with cardiology and PCP follow up
*Pulse Oximetry
SaO2: 99
Oxygen Mode of Delivery: Room air
Patient hypoxic: no
*EKG
Interpreted by ED Provider?: Yes (EKG shows sinus bradycardia at 54bpm with OH 150 QTc 409 no STEMI)
*Critical Care Note
Total Time (30-74mins, 75-104mins- exclusive of procedures): Not Applicable
ED Attending Note
-
Portions of this chart may have been created with voice recognition software.� Occasional wrong word or��sound alike� substitutions may have occurred due to the inherent limitations of voice recognition software.
Discharge Plan
Departure
Patient Disposition: Home (Routine Discharge)
Date of Disposition: 12/30/24
Time of Disposition: 19:56
Patient with high blood pressure during this ER visit?: Yes
Discharge Problem:
Chest pain, Headache
Instructions: Headache in adults - ED (DC), Chest Pain DCA Follow Up, BLOOD PRESSURE
Prescriptions:
No Action
pravastatin 20 mg Tablet
40 mg PO DAILY
ezetimibe 10 mg Tablet
10 mg PO DAILY
multivitamin Tablet
1 tab PO DAILY
aspirin 81 mg Tablet,Chewable
81 mg PO DAILY Qty: 30 0RF
metoprolol succinate 25 mg Tablet Extended Release 24 Hr
12.5 mg PO DAILY 30 Days Qty: 15 0RF
clopidogrel 75 mg tablet
75 mg PO DAILY Qty: 90 3RF
Referrals:
Ismael Contreras MD [Family Provider, Family Practice]
Activity Restrictions/Additional Instructions:
Follow up with cardiology and primary care doctor in 1-2 days
Take tylenol 975mg every 6 hours as needed for headache
Return to the emergency department for chest pain that does not go away, numbness, weakness, tingling or new/worsening symptoms
Interventions
Interventions:
*Risk Screen - Suicide Last Done: 12/30/24 16:03
*General Assessment Last Done: 12/30/24 16:03
*Neglect/Abuse Screening Last Done: 12/30/24 16:03
*ED- Fall Risk Assessment Last Done: 12/30/24 16:03
*ED COVID-19 Vaccine History Last Done: 12/30/24 16:03
ED- Cardiac Assessment Last Done: 12/30/24 16:05
ED- Pulmonary Assessment Last Done: 12/30/24 16:05
Discharge Date and Time
Print Language: AUSTRALIAN
[2024-12-30 16:01] VITALS: BP 103/69
[2024-12-30 16:17] LABS: Hematocrit 32.6 % (37.0-47.0); Hemoglobin 11.1 g/dL (12.0-16.0); Mean Corp Hgb Conc. 34.0 g/dL (33.0-37.0); Mean Corpuscular Volume 96.7 fL (81.0-99.0); Nucleated Red Blood Cells % 0 %; Platelet Count 239 10^3/uL (130-400); Red Cell Dist. Width 13.7 % (11.5-14.5)
[2024-12-30 16:29] LABS: ALT (SGPT) 19 U/L (0-35); AST (SGOT) 26 U/L (14-36); Albumin 4.3 g/dl (3.5-5.0); Alkaline Phosphatase 38 U/L (38-126); Blood Urea Nitrogen 20 mg/dl (7-17); Calcium 9.2 mg/dl (8.4-10.2); Carbon Dioxide 28 mmol/L (22-30); Chloride 107 mmol/L (98-107); Glucose 89 mg/dl (70-99); Potassium 4.1 mmol/L (3.5-5.1); Sodium 138 mmol/L (135-145); Total Protein 6.5 g/dl (6.3-8.2); eGFR > 60.00
[2024-12-30 16:40] LABS: Troponin I < 0.012 ng/ml
[2024-12-30 17:00] VITALS: BP 114/61
[2024-12-30 19:00] VITALS: BP 128/55
[2024-12-30 19:35] LABS: Troponin I < 0.012 ng/ml
== END 2024-12-30 20:31 | disposition home or self-care (01) ==
LOC: EMR 15:11
PROVIDERS: Emergency Medicine; EMERGENCY PHYSICIAN Emergency Medicine; FAMILY PHYSICIAN Family Medicine
DX: R51.9 Headache, unspecified (principal); D64.9 Anemia, unspecified; E78.00 Pure hypercholesterolemia, unspecified
CPT/HCPCS: 99284; 70450; 71046; 80053; 84484; 85025; 93005